=== PATIENT | female | born 1960 | race Hispanic/Latino ===

== ENCOUNTER 2016-08-18 06:52 | Day surgery (SDC) | payer BC ==
[2016-08-18] MEDS ORDERED: NITROSTAT SL ONE (09:24)
[2016-08-18] MEDS ORDERED: ADRENALIN ONE (09:24)
[2016-08-18] MEDS ORDERED: ATROPINE 0.1% (CARDIAC) ONE (09:24)
[2016-08-18] MEDS ORDERED: NACL 0.9% 500 ML 500 ML ONE (09:24)
--- NOTE | 2016-08-18 10:05 | Short Stay Summary ---
Short Stay Documentation Date of service: 08/18/16 - History H&P: obtained from office - Allergies and Medications Current Medications: Allergies codeine Allergy (Verified 05/24/16 17:09) Unknown Penicillins Allergy (Verified 05/24/16 17:09) Unknown Home Medications Medication Instructions Recorded Confirmed Last Taken Type ALPRAZolam [Xanax TAB] 0.25 mg PO PRN 05/24/16 08/18/16 08/17/16 History Clopidogrel [Plavix] 75 mg PO QDAY #30 tablet 05/25/16 08/18/16 08/18/16 04:30 Rx Diclofenac Sodium ER 100 mg PO QDAY 08/18/16 08/18/16 08/17/16 History Ergocalciferol [Vitamin D2] 1 cap PO QWEEK 08/18/16 08/18/16 08/12/16 History Folic Acid [Folvite] 1 mg PO QDAY 08/18/16 08/18/16 08/18/16 04:00 History Gabapentin [Neurontin] 600 mg PO BID 08/18/16 08/18/16 08/18/16 04:00 History Gluc [place]/Chondro [place] A/Vit C/Mn 1 cap PO QDAY 08/18/16 08/18/16 08/18/16 04:00 History [Glucosamine 1,500 Complex Cp] Tatum-3 Fatty Acids/Fish Oil [Fish 1,000 each PO DAILY 08/18/16 08/18/16 04:00 History Oil] Omeprazole 40 mg PO HS 08/18/16 08/18/16 08/17/16 History Oxycodone HCl/Acetaminophen 1 each PO Q6HR PRN 08/18/16 08/18/16 08/18/16 04:00 History [Percocet 10/325 mg] Simvastatin [Zocor TAB] 10 mg PO QHS 08/18/16 08/18/16 08/17/16 History - Physical exam General appearance: no acute distress Integumentary: no rash HEENT: Atraumatic Lungs: Clear to auscultation Breasts: deferred Heart: Regular rate Gastrointestinal: normal Female Genitourinary: deferred Rectal Exam: deferred Extremities: no ischemia Neurological: Normal gait - Brief post op/procedure progress note Date of procedure: 08/18/16 Pre-op diagnosis: Syncope Post-op diagnosis: same Procedure: TTT Anesthesia: none Findings: See report Surgeon: MELISSA SILVERIO Estimated blood loss: none Pathology: none Condition: stable - Hospital course Hospital course: Uneventful - Disposition Condition at discharge: Good Disposition: DC-01 TO HOME OR SELFCARE Short Stay Discharge Plan Activity: advance as tolerated Weight Bearing Status: Weight Bear as Tolerated Diet: regular Follow up with: ARIANNA THOMPSON MD [Primary Care Provider] - 7 Days
[2016-08-18 10:20] VITALS: BP 93/60
--- NOTE | 2016-08-18 22:40 | Tilt Table Report ---
ORDERING PHYSICIAN: Dr. Nav Galloway INDICATION FOR THE PROCEDURE: Syncope. PROCEDURE: Tilt table test. After obtaining written consent, the patient was brought to the label designer area. The patient was secured to the tilt table test. Baseline blood pressure was 110/72 with a heart rate of 67 beats per minute. The patient was tilted to 85 degrees from horizontal. Immediately after tilting, her blood pressure was 108/73 with a heart rate of 63 beats per minute. The patient was maintained in the upright position for 10 minutes. Subsequently, she was given 0.4 mg sublingual nitroglycerin. Prior to giving the nitroglycerin, blood pressure was 112/81 with a heart rate of 74. The lowest recorded blood pressure after nitroglycerin was 108/76 with highest recorded heart rate of 87, sinus rhythm. There were no episodes of syncope, arrhythmias or drop in blood pressure. IMPRESSION: This is a negative tilt table test with no evidence of a vasodepressor or a cardioinhibitory response. RECOMMENDATION: Follow up with referring special technical operations officer. JOB# [id number] DARNELL/WADE
== END 2016-08-18 10:35 | disposition home or self-care (01) ==
LOC: OPU 06:52
PROVIDERS: ATTEND Internal Medicine
DX: R55 Syncope and collapse (principal); I10 Essential (primary) hypertension; E78.5 Hyperlipidemia, unspecified; J44.9 Chronic obstructive pulmonary disease, unspecified; F17.210 Nicotine dependence, cigarettes, uncomplicated; I87.323 Chronic venous hypertension (idiopathic) with inflammation of bilateral lower extremity; I70.213 Atherosclerosis of native arteries of extremities with intermittent claudication, bilateral legs; Z88.5 Allergy status to narcotic agent; Z88.0 Allergy status to penicillin; Z79.01 Long term (current) use of anticoagulants; Z79.899 Other long term (current) drug therapy; Z86.73 Personal history of transient ischemic attack (TIA), and cerebral infarction without residual deficits; Z72.89 Other problems related to lifestyle; Z82.49 Family history of ischemic heart disease and other diseases of the circulatory system; Z83.49 Family history of other endocrine, nutritional and metabolic diseases
CPT/HCPCS: 93660; J7040; J0171; J0461

== ENCOUNTER 2017-02-16 09:18 | Outpatient (CLI) | payer BC ==
--- NOTE | 2017-02-21 18:23 | Magnetic Resonance Report ---
MR angiogram was performed of the intracranial circulation 3-D [id number] spoiled grass images were obtained of the intracranial circulation. The images of the carotid arteries showed no areas of occlusion or aneurysmal dilatation. The vertebral basilar system was also patent without any evidence of occlusive disease. Impression: Normal MR angiogram of the intracranial circulation.
--- NOTE | 2017-02-21 18:30 | Magnetic Resonance Report ---
MR scan of the cranium was performed without contrast. Pulse sequences included: 1. T1 weighted sagittal and axial images without contrast 2. T2 weighted axial and coronal images 3. FLAIR axial images 4. Diffusion-weighted axial images 5. Apparent diffusion coefficient images Views of the posterior fossa showed a normal craniocervical junction. Cerebellar pontine angles were normal with normal seventh-eighth nerve complexes. Brainstem was normal. A wedge shaped area on encephalomalacia was seen in the right neocerebellum. this was accompanied by an area of increased signal on DWI images and decreased perfusion on the ADC images. The ventricular system showed no dilatation or distortion. Images of the hemispheres showed no areas of increased or decreased signal. Sinuses, flow voids in the [place], orbits, pituitary and basal ganglia were normal. Impression: Abnormal MR scan of the cranium without contrast. 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
== END 2017-02-16 09:19 | disposition home or self-care (01) ==
LOC: MRI 09:18
PROVIDERS: ATTEND Specialist
DX: I63.9 Cerebral infarction, unspecified (principal); G93.89 Other specified disorders of brain; R93.8 Abnormal findings on diagnostic imaging of other specified body structures
CPT/HCPCS: 70544; 70551